=== PATIENT | male | born 1950 | race Caucasian/White ===

== ENCOUNTER 2018-07-26 11:11 | Inpatient (IN) | payer OTHER ==
[~2018-07-26] VITALS: Ht 177.8 cm; Wt 99.2 kg
[2018-07-26 11:38] LABS: BASOPHILS % (AUTO) 0.6 % (0.0-5.0); HEMATOCRIT 39.6 % (42-54); LYMPHOCYTES % (AUTO) 9.7 % (21.0-51.0); MEAN CORPUSCULAR HEMOGLOBIN 28.9 pg (27.0-33.0); MEAN CORPUSCULAR HGB CONC 33.6 g/dL (32.0-36.0); MEAN CORPUSCULAR VOLUME 85.8 fL (79-99); MONOCYTES % (AUTO) 13.3 % (3.0-13.0); NEUTROPHILS % (AUTO) 75.4 % (40.0-77.0); NUCLEATED RED BLOOD CELLS 0.1 % (0.0-0.19); PLATELET COUNT (AUTO) 173 K/uL (130-400); RED BLOOD CELL COUNT(AUTO) 4.62 MIL/uL (4.50-6.20); RED CELL DISTRIBUTION WIDTH 14.1 % (11.0-15.5)
[2018-07-26 11:47] LABS: CREATININE 1.6 mg/dL (0.5-1.5); POTASSIUM 3.9 mmol/L (3.5-5.1)
[2018-07-26 11:48] LABS: INR 0.93 (0.85-1.15); PROTHROMBIN TIME 9.8 SEC (9.6-11.6)
[2018-07-26 11:49] LABS: ALBUMIN 3.9 g/dL (3.5-5.0); BILIRUBIN,TOTAL 0.5 mg/dL (0.2-1.0); TOTAL PROTEIN, SERUM 7.5 g/dL (6.0-8.3)
[2018-07-26] MEDS ORDERED: ASPIRIN 325 MG TABLET ONE (14:35)
[2018-07-26] MEDS ORDERED: ACETAMINOPHEN-CODEINE 300/30MG TAB PO PRN (15:30)
[2018-07-26] MEDS ORDERED: HYDROCODONE/ACETAMINOPHEN 5/325 MG TAB PO PRN (15:30)
[2018-07-26] MEDS ORDERED: ATORVASTATIN CALCIUM 40 MG TABLET PO SCH ×2 (16:00→21:00)
[2018-07-26] MEDS ORDERED: ATORVASTATIN CALCIUM 20 MG TABLET ONE (16:58)
[2018-07-26 17:19] VITALS: BP 137/69
[2018-07-26] MEDS ORDERED: METO25TA3 PO (18:38)
[2018-07-26] MEDS ORDERED: EZET10 PO (18:38)
[2018-07-26] MEDS ORDERED: FERR325T22 PO (18:38)
[2018-07-26] MEDS ORDERED: AEC81 PO (18:38)
[2018-07-26] MEDS ORDERED: CLOP75TA32 PO (18:38)
[2018-07-26] MEDS ORDERED: TAMS0.4C32 PO (18:38)
[2018-07-26] MEDS ORDERED: ROSU40 PO (18:38)
[2018-07-26] MEDS ORDERED: FAMO20TA8 PO (18:38)
[2018-07-26 19:40] VITALS: BP 115/57
[2018-07-26] MEDS: TAMSULOSIN HCL 0.4 MG CAP.ER.24H PO SCH (20:19)
[2018-07-26] MEDS ORDERED: EZETIMIBE 10 MG TAB ONE (20:21)
[2018-07-26] MEDS ORDERED: METOPROLOL TARTRATE 25 MG TAB PO SCH (21:00)
[2018-07-26] MEDS ORDERED: EZETIMIBE 10 MG TAB PO SCH (21:00)
[2018-07-26] MEDS ORDERED: CALC-866 PO (21:50)
[2018-07-26 23:40] VITALS: BP 121/64
[2018-07-27 00:37] LABS: CREATINE KINASE, TOTAL 123 U/L (21-232); MYOGLOBIN 112 ng/mL (10-92)
[2018-07-27 03:49] VITALS: BP_SYST 114; BP_SYST 124; BP_DIAS 61; BP_DIAS 72
[2018-07-27 03:59] LABS: HEMATOCRIT 36.2 % (42-54); MEAN CORPUSCULAR HEMOGLOBIN 29.6 pg (27.0-33.0); MEAN CORPUSCULAR HGB CONC 34.1 g/dL (32.0-36.0); MEAN CORPUSCULAR VOLUME 86.7 fL (79-99); PLATELET COUNT (AUTO) 168 K/uL (130-400); RED BLOOD CELL COUNT(AUTO) 4.18 MIL/uL (4.50-6.20); RED CELL DISTRIBUTION WIDTH 14.2 % (11.0-15.5); WHITE BLOOD COUNT (AUTO) 3.7 K/uL (4.8-10.8)
[2018-07-27 04:31] LABS: CARBON DIOXIDE 32 mmol/L (21-32); CHLORIDE 104 mmol/L (101-111); CREATINE KINASE, TOTAL 107 U/L (21-232); CREATININE 1.5 mg/dL (0.5-1.5); GLOMERULAR FILTR. RATE CALC 49 mL/min (>60); GLUCOSE,RANDOM 98 mg/dL (70-105); MYOGLOBIN 78 ng/mL (10-92); POTASSIUM 3.5 mmol/L (3.5-5.1); SODIUM SERUM 141 mmol/L (136-145); TROPONIN I < 0.04 ng/mL (0.00-0.06); UREA NITROGEN, BLOOD 19 mg/dL (7-18)
[2018-07-27 05:42] LABS: INR 0.96 (0.85-1.15); PARTIAL THROMBOPLASTIN TIME 24.9 SEC (26.3-35.5); PROTHROMBIN TIME 10.1 SEC (9.6-11.6)
[2018-07-27 07:36] VITALS: BP 131/61
[2018-07-27] MEDS ORDERED: EZETIMIBE 10 MG TAB PO SCH ×2 (09:00→21:00)
[2018-07-27] MEDS ORDERED: CHOLECALCIFEROL 5000 UNIT PO SCH (09:00)
[2018-07-27] MEDS ORDERED: FERROUS SULFATE 325 MG TABLET.DR PO SCH (09:00)
[2018-07-27] MEDS ORDERED: FAMOTIDINE 20MG TAB 20 MG TAB PO SCH ×2 (09:00→21:00)
[2018-07-27] MEDS ORDERED: ENOXAPARIN SODIUM 40 MG/0.4 ML SYRINGE SQ SCH (09:00)
[2018-07-27] MEDS: METOPROLOL TARTRATE 25 MG TAB PO SCH ×2 (09:00→21:00)
[2018-07-27] MEDS ORDERED: REGADENOSON 0.4 MG/5 ML PF SYG IVP SCH (10:45)
[2018-07-27 10:52] VITALS: BP 105/54
[2018-07-27 16:17] VITALS: BP 118/69
[2018-07-27] MEDS: FERROUS GLUCONATE 325 MG TABLET PO SCH (16:20)
[2018-07-27] MEDS: PANTOPRAZOLE SODIUM 40 MG TABLET.DR PO SCH (16:21)
[2018-07-27] MEDS: CALCIUM CARBONATE 500 MG TABLET PO SCH (16:21)
[2018-07-27] MEDS: CLOPIDOGREL BISULFATE 75 MG TAB PO SCH (16:21)
[2018-07-27] MEDS: ASPIRIN 81 MG EC TAB PO SCH (16:21)
[2018-07-27 19:31] VITALS: BP 119/66
[2018-07-27] MEDS ORDERED: ATORVASTATIN CALCIUM 40 MG TABLET PO SCH (21:00)
[2018-07-27] MEDS: TAMSULOSIN HCL 0.4 MG CAP.ER.24H PO SCH (21:37)
[2018-07-27 23:28] VITALS: BP 115/59
[2018-07-28 03:24] VITALS: BP 132/66
[2018-07-28 03:35] LABS: BASOPHILS % (AUTO) 0.7 % (0.0-5.0); EOSINOPHILS % (AUTO) 3.5 % (0.0-8.0); HEMATOCRIT 37.8 % (42-54); MEAN CORPUSCULAR HEMOGLOBIN 28.8 pg (27.0-33.0); MEAN CORPUSCULAR HGB CONC 33.3 g/dL (32.0-36.0); MEAN CORPUSCULAR VOLUME 86.5 fL (79-99); MONOCYTES % (AUTO) 17.5 % (3.0-13.0); NEUTROPHILS % (AUTO) 64.3 % (40.0-77.0); NUCLEATED RED BLOOD CELLS 0.1 % (0.0-0.19); PLATELET COUNT (AUTO) 158 K/uL (130-400); RED BLOOD CELL COUNT(AUTO) 4.36 MIL/uL (4.50-6.20); RED CELL DISTRIBUTION WIDTH 14.2 % (11.0-15.5); WHITE BLOOD COUNT (AUTO) 3.6 K/uL (4.8-10.8)
[2018-07-28 03:48] LABS: CREATININE 1.6 mg/dL (0.5-1.5); POTASSIUM 3.7 mmol/L (3.5-5.1)
[2018-07-28 07:47] VITALS: BP 121/59
[2018-07-28] MEDS: CLOPIDOGREL BISULFATE 75 MG TAB PO SCH (08:57)
[2018-07-28] MEDS: FERROUS GLUCONATE 325 MG TABLET PO SCH (08:57)
[2018-07-28] MEDS: PANTOPRAZOLE SODIUM 40 MG TABLET.DR PO SCH (08:57)
[2018-07-28] MEDS: ASPIRIN 81 MG EC TAB PO SCH (08:57)
[2018-07-28] MEDS: CALCIUM CARBONATE 500 MG TABLET PO SCH (08:57)
[2018-07-28] MEDS ORDERED: ASPIRIN 81MG TAB.CHEW PO SCH (09:00)
== END 2018-07-28 12:55 | disposition home or self-care (01) | DRG 392 ==
LOC: EDH 11:11 → EDHIP 15:24 → 2AH 17:09
PROVIDERS: ADMIT Hospitalist; ATTEND Hospitalist
DX: K21.9 Gastro-esophageal reflux disease without esophagitis (principal); I25.110 Atherosclerotic heart disease of native coronary artery with unstable angina pectoris; I12.9 Hypertensive chronic kidney disease with stage 1 through stage 4 chronic kidney disease, or unspecified chronic kidney disease; E78.5 Hyperlipidemia, unspecified; I25.119 Atherosclerotic heart disease of native coronary artery with unspecified angina pectoris; N18.3 Chronic kidney disease, stage 3 (moderate); E55.9 Vitamin D deficiency, unspecified; Z95.5 Presence of coronary angioplasty implant and graft; Z90.5 Acquired absence of kidney; Z85.46 Personal history of malignant neoplasm of prostate; Z92.21 Personal history of antineoplastic chemotherapy; Z92.3 Personal history of irradiation; Z79.82 Long term (current) use of aspirin
CPT/HCPCS: 36415; 71045; 78452; 80048; 80053; 82550; 83874; 84484; 85025; 85027; 85610; 85730; 93005; 93017; 93306; 96374; A9500; J1650; J2785